=== PATIENT | female | born 1945 | race Two or more races ===

== ENCOUNTER 2020-03-16 10:25 | Inpatient (IN) | payer OTHER, MEDICAID ==
[~2020-03-16] VITALS: Ht 154.9 cm; Wt 67.0 kg
[2020-03-16] MEDS ORDERED: SODIUM CHLORIDE 0.9% 500 ML IV ONE (10:31)
[2020-03-16] MEDS ORDERED: cloNIDine HCL 0.1 MG TAB ONE (10:44)
[2020-03-16] MEDS ORDERED: cloNIDine HCL 0.1 MG TAB PO ONE (10:45)
[2020-03-16 10:58] LABS: Basophils # (auto) 0.1 10 ^3/uL (0-0.2); Basophils % (auto) 1.3 % (0.0-2.0); Eosinophils # (auto) 0.1 10 ^3/uL (0-0.8); Eosinophils % (auto) 2.1 % (0.0-7.0); Hematocrit 38.9 % (36.0-46.0); Hemoglobin 12.5 g/dL (12.2-16.2); Lymphocytes # (auto) 1.7 10 ^3/uL (0.4-5.4); Lymphocytes % (auto) 25.6 % (10.0-50.0); Mean Corpuscular Hemoglobin 28.4 pg (28.0-32.0); Mean Corpuscular Hgb Conc. 32.2 g/dL (32.0-36.0); Mean Corpuscular Volume 88.1 fL (80.0-100.0); Monocytes # (auto) 0.6 10 ^3/uL (0-1.3); Monocytes % (auto) 9.5 % (0.0-12.0); Neutrophils % (auto) 61.5 % (37.0-80.0); Platelet Count (auto) 311 10^3/uL (140-450); Red Blood Cells 4.41 10^6/uL (4.0-5.20); Red Cell Distribution Width 15.2 % (11.8-14.3); White Blood Cell 6.5 10^3/uL (4.4-10.8)
[2020-03-16 11:17] LABS: Albumin 3.3 g/dL (3.4-5.0); Calcium 8.9 mg/dL (8.5-10.1); Potassium 4.3 mmol/L (3.5-5.1)
[2020-03-16 11:23] LABS: BUN/Creatinine Ratio 17.8; Bilirubin, Total 0.4 mg/dL (0.2-1.0); Total Protein 7.3 g/dL (6.4-8.2)
[2020-03-16] MEDS ORDERED: ACETAMINOPHEN 500 MG TAB PO PRN (12:30)
[2020-03-16] MEDS ORDERED: ONDANSETRON HCL 4 MG/2 ML VIAL IV PRN (12:30)
[2020-03-16] MEDS ORDERED: NITROGLYCERIN 0.4 MG SL TAB SL PRN (12:30)
[2020-03-16] MEDS ORDERED: MORPHINE SULF INJ 2 MG/ML SYRINGE 1ML IV PRN ×2 (12:30)
[2020-03-16] MEDS ORDERED: HYDROcodone-ACET 5/325MG TAB PO PRN (12:30)
[2020-03-16 13:04] LABS: Folate (Folic Acid) > 24.00 ng/mL (5.38-24)
--- NOTE | 2020-03-16 20:25 | NUR ---
PATIENT ARRIVED TO UNIT VIA WHEELCHAIR. SHE IS AO X4 AND WAS ABLE TO AMBULATE INDEPENDENTLY WITH HER CANE THAT SHE BROUGHT FROM HOME. SHE COMPLAINS OF MILD PAIN TO THE RIGHT SHOULDER BUT DOES NOT WANT ANYTHING AT THE MOMENT FOR IT. SHE HAS NO COMPLAINTS OF SHORTNESS OF BREATH. BED IS LOCKED IN LOWEST POSITION WITH SIDE RAILS UP X2. WILL CONTINUE TO MONITOR.
[2020-03-16 22:00] VITALS: BP 151/81
[2020-03-16] MEDS: METOPROLOL TARTRATE 25 MG TAB PO SCH (22:10)
--- NOTE | 2020-03-17 00:59 | NUR ---
ROUNDING ON PATIENT AND SAW THAT SHE WAS SITTING UP IN THE BED WITH HER GOWN OFF. UPON FURTHER INSPECTION I SAW THAT SHE HAD TAKEN OFF HER TELE BOX AND PULLED OUT HER IV. I ASKED HER A SERIES OF QUESTIONS TO SEE IF SHE WAS ORIENTED. SHE WAS ABLE TO ANSWER EVERYTHING CORRECTLY. I ASKED IF I COULD PUT THE TELE BOX BACK ON BUT SHE STATED NO. I ALSO TOLD HER THAT I NEED TO PLACE AN IV SO THAT WE CAN ADMINISTER MEDICATION. SHE STATED I DON'T WANT AN IV.
[2020-03-17 05:00] VITALS: BP 152/103
--- NOTE | 2020-03-17 07:25 | NUR ---
Opening Shift Note Assumed care of patient, awake and alert x4, No S/S of distress/SOB or pain reported at this time, Instructed on POC and to call for assist PRN, call light within reach,. currently NO IV access was noted, pt refusing IV insertion, pt educated that an IV may be needed to administer medication to lower blood Pressure if oral medications are inadequate, patient cont to refuse, will continue to monitor for changes Q1hr and PRN.
[2020-03-17 08:47] VITALS: BP 212/83
[2020-03-17] MEDS: PANTOPRAZOLE 40 MG TAB PO SCH (09:19)
[2020-03-17] MEDS: amLODIPine BESYLATE 5 MG TAB PO SCH (09:19)
[2020-03-17] MEDS: METOPROLOL TARTRATE 25 MG TAB PO SCH ×2 (09:20→22:53)
--- NOTE | 2020-03-17 11:30 | NUR ---
PT CONTINUES TO REFUSE IV INSERTION PT EDUCATED ON NEED FOR IV ACCESS, IN CASE OF ACUTE EMERGENCY NECESSITY WHILE HOSPITALIZED, PT VERBALIZED UNDERSTANDING, CONT TO REFUSE, CONT CARE
[2020-03-17 12:47] VITALS: BP 141/83
--- NOTE | 2020-03-17 16:11 | NUR ---
PAGED DR PETE PAGED, REGARDING PT, PT CONT TO REFUSE IV, AND WONDERING IF SHE MIGHT BE DISCHARGED, CONT CARE
[2020-03-17 17:06] VITALS: BP 150/84
--- NOTE | 2020-03-17 17:25 | NUR ---
IV insertion IV access obtained, via clean sterile technique by inserting 22 gauge catheter at left wrist after 2 attempts. IV secured properly. No trauma to site. Patient tolerated well.
[2020-03-17] MEDS ORDERED: LOSARTAN POTASSIUM 50 MG TAB PO ONE (17:45)
--- NOTE | 2020-03-17 20:30 | NUR ---
open note assumed care of pt, awake alert and oriented x4 upon this nurse entering room. pt on room air no distress noted or expressed. pt denies any pain. pt updated on plan of care. no additional questions at this time. pt bed locked, low and 2x rails up. pt call light in reach. this nurse to round q1hr and prn. pt encouraged to call as needed.
[2020-03-17 22:00] VITALS: BP 155/76
--- NOTE | 2020-03-18 01:00 | NUR ---
pt refusing to have tele leads placed.
--- NOTE | 2020-03-18 03:00 | NUR ---
pt self discontinued IV. stated "this thing was bothering me, im going home today anyway". no trauma to site. pt given new gown. no complaints. call light in reach will continue to monitor.
[2020-03-18 05:26] VITALS: BP 164/93
[2020-03-18 05:27] LABS: Basophils # (auto) 0.1 10 ^3/uL (0-0.2); Basophils % (auto) 0.9 % (0.0-2.0); Eosinophils # (auto) 0.1 10 ^3/uL (0-0.8); Hematocrit 37.7 % (36.0-46.0); Hemoglobin 12.2 g/dL (12.2-16.2); Lymphocytes # (auto) 1.9 10 ^3/uL (0.4-5.4); Lymphocytes % (auto) 27.7 % (10.0-50.0); Mean Corpuscular Hemoglobin 28.6 pg (28.0-32.0); Mean Corpuscular Hgb Conc. 32.5 g/dL (32.0-36.0); Mean Corpuscular Volume 88.2 fL (80.0-100.0); Monocytes # (auto) 0.6 10 ^3/uL (0-1.3); Monocytes % (auto) 8.4 % (0.0-12.0); Neutrophils # (auto) 4.2 10 ^3/uL (1.6-8.6); Platelet Count (auto) 288 10^3/uL (140-450); Red Blood Cells 4.27 10^6/uL (4.0-5.20); Red Cell Distribution Width 14.9 % (11.8-14.3); White Blood Cell 6.8 10^3/uL (4.4-10.8)
[2020-03-18 05:52] LABS: Potassium 4.3 mmol/L (3.5-5.1)
[2020-03-18 06:08] LABS: Albumin 3.4 g/dL (3.4-5.0); Bilirubin, Total 0.3 mg/dL (0.2-1.0); Magnesium 1.9 mg/dL (1.6-2.6); Total Protein 7.1 g/dL (6.4-8.2)
[2020-03-18] MEDS: METOPROLOL TARTRATE 25 MG TAB PO SCH (06:40)
--- NOTE | 2020-03-18 08:21 | NUR ---
OPENING SHIFT NOTE Assumed care of patient. PT is awake and alert. No S/S of distress/SOB or pain. Bed in low and locked position. PT is refusing new IV placement and tele monitory. Call light within reach. Instructed on POC and to call for assist PRN, will continue to monitor for changes Q1hr and PRN.
[2020-03-18 09:15] VITALS: BP 197/94
[2020-03-18] MEDS: amLODIPine BESYLATE 5 MG TAB PO SCH (09:24)
[2020-03-18] MEDS: PANTOPRAZOLE 40 MG TAB PO SCH (09:24)
[2020-03-18] MEDS ORDERED: LOSARTAN POTASSIUM 50 MG TAB PO SCH (10:00)
[2020-03-18] MEDS ORDERED: HCTZ 25 MG TAB PO ONE (10:30)
[2020-03-18 13:00] VITALS: BP 157/88
--- NOTE | 2020-03-18 13:04 | NUR ---
RECEIVED CALL FROM DR PETE TO UPDATE ON DC PLAN. DC ORDER PLACED BUT INSTRUCTED TO HOLD UNTIL BP IS LOWER THAN 160/80 AND UNTIL NEW UA WAS COLLECTED. UPDATED PT WITH NEW DC PLAN. PT AGREED TO HAVE TELE MONITOR PLACED BACK ON.
[2020-03-18] MEDS ORDERED: AML5T PO (13:08)
[2020-03-18] MEDS ORDERED: LOSA-69 PO (13:08)
[2020-03-18] MEDS ORDERED: [UNRECOGNIZED DRUG - CODE] XX (13:08)
[2020-03-18] MEDS ORDERED: HCTZ25T PO (13:08)
[2020-03-18] MEDS ORDERED: MET25T PO (13:08)
--- NOTE | 2020-03-18 14:07 | NUR ---
UA COLLECTED AND SENT TO LAB.
--- NOTE | 2020-03-18 15:00 | NUR ---
SS consult for home health for safety and med management. Contacted [facility] contracted provider, [facility]. [facility]. Pt accepted onto service and will be seen 24 hours post discharge. Will continue to monitor and provide intervention as appropriate.
[2020-03-18 15:05] LABS: Urine Bacteria FEW /hpf (None Seen); Urine Blood Negative /uL (Negative); Urine Specific Gravity 1.007 (1.001-1.035); Urine WBC 9 /hpf (0 - 5)
[2020-03-18 15:10] LABS: Alcohol, Urine < 3.0 mg/dL (0-10); Amphetamine Screen, Urine NEGATIVE (NEGATIVE); Barbiturate Scree,Urine NEGATIVE (NEGATIVE); Benzodiazephine Screen, Urine NEGATIVE (NEGATIVE); Cannabinoid Screen, Urine NEGATIVE (NEGATIVE); Cocaine Screen, Urine NEGATIVE (NEGATIVE); Opiate Scree,Urine NEGATIVE (NEGATIVE); Phencyclidine Screen, Urine NEGATIVE (NEGATIVE)
[2020-03-18 16:56] VITALS: BP 165/83
[2020-03-18] MEDS ORDERED: cloNIDine HCL 0.1 MG TAB PO ONE (17:45)
[2020-03-18 18:26] VITALS: BP 116/73
--- NOTE | 2020-03-18 19:00 | NUR ---
Discharge instructions given as ordered. Encourage to follow up with PMD as instructed. All questions and concerns addressed. Patient verbalized understanding. Medication reconciliation form completed and copy given to patient. Telemetry unit returned to ICU. Patient taken to vehicle via wheelchair with all personal belongings, accompanied by staff and family member. No distress noted at time of departure.
[2020-03-19] MEDS ORDERED: HCTZ 25 MG TAB PO SCH (10:00)
== END 2020-03-18 19:00 | disposition home health service (06) | DRG 305 ==
LOC: EDBD 10:25 → ER 10:25 → TELE 10:26 → TELE-WESTW 20:29
PROVIDERS: ADMIT Nurse Practitioner Acute Care; ATTEND Internal Medicine
DX: I16.9 Hypertensive crisis, unspecified (principal); E44.1 Mild protein-calorie malnutrition; I50.32 Chronic diastolic (congestive) heart failure; I11.0 Hypertensive heart disease with heart failure; E78.5 Hyperlipidemia, unspecified; I71.4 Abdominal aortic aneurysm, without rupture; F17.210 Nicotine dependence, cigarettes, uncomplicated; Z68.27 Body mass index [BMI] 27.0-27.9, adult; Z90.710 Acquired absence of both cervix and uterus
CPT/HCPCS: 36415; 70450; 71045; 80053; 80061; 80307; 81001; 82607; 82746; 83036; 83735; 83880; 84443; 84484; 85025; 93005; 93306; 93975; 96360; G0378